=== PATIENT | male | born 1970 | race Caucasian/White ===

== ENCOUNTER 2018-01-05 22:55 | Emergency (ER) | payer OTHER ==
[2018-01-05] MEDS ORDERED: [UNRECOGNIZED DRUG - REMARK] PO (23:08)
--- NOTE | 2018-01-05 23:43 | ER Report ---
History and Physical Time Seen By MD: 23:35 Hx. of Stated Complaint: PATIENT HAS REDDENED, ITCHY SKIN IN GROIN, SYMPTOMS STARTED A WEEK AGO, THEY TREATED IT WITH OTC MEDICATIONS, IT WAS GETTING BETTER, THEN CAM BACK AND WORSE. PATIENT STATES SOME FREQUENCY6 OF URINATION, A LITTLE BIT OF PAIN WITH URINATION WELL. HPI/ROS CHIEF COMPLAINT: Rash on genitals HISTORY OF PRESENT ILLNESS: 47-year-old male notes a rash on his genitals for approximately one week. Patient used [id number] medication with improvement over 3 days, but then it returned. He started a seven-day treatment. Patient notes barely itching. He denies dysuria, frequency or hematuria. No penile discharge. He states he is monogamous with his . He denies risk of STDs. REVIEW OF SYSTEMS: Respiratory: No cough, no dyspnea. Cardiovascular: No chest pain, no palpitations. Gastrointestinal: No vomiting, no abdominal pain. Musculoskeletal: No back pain. Allergies: Coded Allergies: cephalexin (Verified Allergy, Intermediate, RASH/HIVES/ITCHING, 01/05/18) Home Meds Reported Medications [Burns Pill] No Conflict Check, 1200 MG PO BID 01/05/18 Reviewed Nurses Notes: Yes Old Medical Records Reviewed: Yes Constitutional Vital Sign - Last 24 Hours 01/05/18 01/05/18 01/05/18 01/05/18 23:00 23:10 23:25 23:30 Temp 98.0 Pulse 79 74 72 Resp 16 B/P (MAP) 161/96 132/85 (101) Pulse Ox 95 94 93 O2 Delivery Room Air 01/05/18 01/05/18 01/06/18 23:40 23:55 00:15 Pulse 72 70 85 Resp 16 B/P (MAP) 142/85 (104) Pulse Ox 94 94 95 O2 Delivery Room Air Physical Exam General appearance: Alert no distress. Respiratory: Chest is non tender, lungs are clear to auscultation. Cardiac: Regular rate and rhythm Genitals: Circumcised male DIFFERENTIAL DIAGNOSIS: After history and physical exam differential diagnosis was considered for herpes genitalis, tinea cruris, urinary tract infection, balanitis, Medical Decision Making Data Points Laboratory Hematology Test 01/05/18 22:59 Urine Color Yellow Urine Clarity Clear Urine pH 7.0 pH (4.8-9.5) Urine Specific [place] 1.023 Urine Protein Negative mg/dL (NEGATIVE) Urine Glucose (UA) Negative mg/dL (NEGATIVE) Urine Ketones Negative mg/dL (NEGATIVE) Urine Blood Negative (NEGATIVE) Urine Nitrite Negative (NEGATIVE) Urine Bilirubin Negative (NEGATIVE) Urine Urobilinogen Negative mg/dL (0.2-1.9) Urine Leukocyte Esterase Negative (NEGATIVE) Urine RBC 1 /HPF (0-2/HPF) Urine WBC <1 /HPF (0-5/HPF) Urine Squamous Epithelial Cells None /LPF (</=FEW) Urine Bacteria Negative /HPF (NONE-FEW) Urine Mucus None /HPF (NONE-FEW) Chemistry Test 01/05/18 22:59 Urine Color Yellow Urine Clarity Clear Urine pH 7.0 pH (4.8-9.5) Urine Specific [place] 1.023 Urine Protein Negative mg/dL (NEGATIVE) Urine Glucose (UA) Negative mg/dL (NEGATIVE) Urine Ketones Negative mg/dL (NEGATIVE) Urine Blood Negative (NEGATIVE) Urine Nitrite Negative (NEGATIVE) Urine Bilirubin Negative (NEGATIVE) Urine Urobilinogen Negative mg/dL (0.2-1.9) Urine Leukocyte Esterase Negative (NEGATIVE) Urine RBC 1 /HPF (0-2/HPF) Urine WBC <1 /HPF (0-5/HPF) Urine Squamous Epithelial Cells None /LPF (</=FEW) Urine Bacteria Negative /HPF (NONE-FEW) Urine Mucus None /HPF (NONE-FEW) Urinalysis Test 01/05/18 22:59 Urine Color Yellow Urine Clarity Clear Urine pH 7.0 pH (4.8-9.5) Urine Specific [place] 1.023 Urine Protein Negative mg/dL (NEGATIVE) Urine Glucose (UA) Negative mg/dL (NEGATIVE) Urine Ketones Negative mg/dL (NEGATIVE) Urine Blood Negative (NEGATIVE) Urine Nitrite Negative (NEGATIVE) Urine Bilirubin Negative (NEGATIVE) Urine Urobilinogen Negative mg/dL (0.2-1.9) Urine Leukocyte Esterase Negative (NEGATIVE) Urine RBC 1 /HPF (0-2/HPF) Urine WBC <1 /HPF (0-5/HPF) Urine Squamous Epithelial Cells None /LPF (</=FEW) Urine Bacteria Negative /HPF (NONE-FEW) Urine Mucus None /HPF (NONE-FEW) ED Course/Re-evaluation ED Course Patient was admitted to an examination room. H&P was done. The differential diagnoses was considered. On clinical examination. Patient has what appears to be Tinea cruris. Patient's had no improvement with [id number]. Will add triamcinolone cream for treatment. Patient had a normal urinalysis. No evidence of urinary tract infection. Patient advised to follow-up with his primary care physician upon returning home if he still has symptoms in 3-5 days. Decision to Disposition Date: Jan 06, 2018 Decision to Disposition Time: 00:00 Depart Departure Latest Vital Signs Vital Signs Date Time Temp Pulse Resp B/P (MAP) Pulse Ox O2 Delivery O2 Flow Rate FiO2 01/06/18 00:15 85 16 142/85 (104) 95 Room Air 01/05/18 23:00 98.0 Impression: Primary Impression: Balanitis Condition: Improved Disposition: HOME OR SELF-CARE Patient Instructions: [facility] (ED) Additional Instructions: Mix cortisone cream with miconazole 2% cream and apply 3 times daily to the affected areas Follow-up with her primary care doctor if unimproved in one week YUDELKA BAIN DO Jan 05, 2018 23:43
[2018-01-06] MEDS ORDERED: TRIAMCINOLONE ACE 0.1% CR 15GM TP ONE
[2018-01-06 00:15] VITALS: BP 142/85
== END 2018-01-06 00:16 | disposition home or self-care (01) ==
LOC: ER 23:06
DX: N48.1 Balanitis (principal)
CPT/HCPCS: 81001; 99283